=== PATIENT | female | born 1960 | race Caucasian/White ===

== ENCOUNTER 2016-10-27 00:04 | Emergency (ER) | payer MEDICARE, MEDICAID ==
[2016-10-27 00:14] VITALS: BP 124/69
[2016-10-27] MEDS ORDERED: FAMOTIDINE 20 MG TABLET PO ONE (02:36)
[2016-10-27] MEDS ORDERED: PREDNISONE 20 MG TABLET PO ONE (02:36)
--- NOTE | 2016-10-27 02:36 | ER Document Report ---
ED Allergic Reaction - General Mode of Arrival: Ambulatory Information source: Patient TRAVEL OUTSIDE OF THE [place] IN LAST 30 DAYS: No - HPI Onset: Just prior to arrival Severity: None Food exposure: Shellfish - General Chief Complaint: Allergic Reaction Stated Complaint: POSSIBLE ALLERGIC REACTION Notes: Patient is a 56-year-old female that presents to the emergency department today with complaints of an allergic reaction prior to arrival. Patient states she was eating artificial crab meat around 2315 this evening when she developed a diffuse rash with itching. Patient states she has not been allergic to any seafood in the past. Patient states she is not short of breath now and she did not notice any wheezing. at bedside states the patient had a diffuse rash. Patient states the rash was itchy but she denies any other symptoms. ( HOANG KUMAR) - Related Data Allergies/Adverse Reactions: acetaminophen [From Percocet] Allergy (Intermediate, Verified 04/27/16 10:00) Hallucinations adhesive [Adhesive] Allergy (Intermediate, Verified 04/27/16 10:00) rash celecoxib [From Celebrex] Allergy (Intermediate, Verified 04/27/16 10:00) vomiting and hives nitrofurantoin [From Macrobid] Allergy (Intermediate, Verified 04/27/16 10:00) rash nitrofurantoin macrocrystalline [From Macrobid] Allergy (Intermediate, Verified 04/27/16 10:00) Generalized rash buprenorphine Adverse Reaction (Intermediate, Verified 04/27/16 10:00) Anaphylaxis oxycodone HCl [From Percocet] Adverse Reaction (Intermediate, Verified 04/27/16 10:00) hallucinate Past Medical History - General Information source: Patient - Social History Smoking Status: Current Every Day Smoker Cigarette use (# per day): Yes Frequency of alcohol use: None Drug Abuse: None Lives with: Family Family History: Reviewed & Not Pertinent GI Medical History: Reports: Hx Gastroesophageal Reflux Disease Musculoskeltal Medical History: Reports Hx Arthritis, Reports Hx Fibromyalgia Psychiatric Medical History: Reports: Hx Anxiety, Hx Depression Past Surgical History: Reports: Hx Orthopedic Surgery - neck fusion, right shoulder, L arm. Denies: Hx Hysterectomy - Immunizations Hx Diphtheria, Pertussis, Tetanus Vaccination: No Review of Systems - Review of Systems Constitutional: See HPI, Other - allergic reaction EENT: No symptoms reported Cardiovascular: No symptoms reported Respiratory: denies: Short of breath, Wheezing Gastrointestinal: No symptoms reported Genitourinary: No symptoms reported Female Genitourinary: No symptoms reported Musculoskeletal: No symptoms reported Skin: See HPI, Rash Hematologic/Lymphatic: No symptoms reported Neurological/Psychological: No symptoms reported -: Yes All other systems reviewed and negative Physical Exam - General General appearance: Appears well, Alert In distress: None - HEENT Head: Normocephalic, Atraumatic Eyes: Normal Conjunctiva: Normal Extraocular movements intact: Yes Pharynx: Normal, Other - oropharynx is clear - Respiratory Respiratory status: No respiratory distress Chest status: Nontender Breath sounds: Normal - Cardiovascular Rhythm: Regular Heart sounds: Normal auscultation Murmur: No - Abdominal Inspection: Normal Distension: No distension - Extremities General upper extremity: Normal inspection, Normal ROM. No: Edema General lower extremity: Normal inspection, Normal ROM. No: Edema - Neurological Neuro grossly intact: Yes Cognition: Normal Orientation: AAOx4 Speech: Normal - Psychological Associated symptoms: Normal affect, Normal mood - Skin Skin Temperature: Warm Skin Moisture: Dry Skin Color: Normal Course - Re-evaluation Re-evalutation: 10/27/16 02:54 Patient presents stating that she had an allergic reaction to something that she thinks she ate around 11:30 tonight. She says she broke out in a rash all over and was very itchy. She reports that she tried alcohol swabs to reduce the itch. She called the rescue squad and they gave her some Benadryl and the itching has improved. She says the rash is gone now. She denies any history of allergic reactions. On exam, patient alert and oriented no acute distress vital signs are stable patient is afebrile nontoxic appearing. No signs of respiratory distress. Chest is clear and equal. No evidence of rash at this time. We will start patient on a short course of steroids and have her follow- up with her PCP. (KAVIN NOLASCO) - Vital Signs Vital signs: Temp Pulse Resp BP Pulse Ox 98.0 F 85 18 124/69 99 10/27/16 00:09 10/27/16 00:09 10/27/16 00:09 10/27/16 00:09 10/27/16 00:09 Discharge - Discharge Clinical Impression: Rash Allergic reaction Qualifiers: Encounter type: initial encounter Qualified Code(s): T78.40XA - Allergy, unspecified, initial encounter Condition: Stable Disposition: HOME, SELF-CARE Instructions: Acute Allergic Reaction ([facility]) Additional Instructions: Drink plenty fluids to stay well hydrated. Take the prednisone for the next couple of days to help reduce any residual allergic reaction - first dose with lunch today. You can continue to use Benadryl as needed for any itching. Follow- up the primary provider. Return for difficulty breathing, chest pain or other worsening or concerning symptoms. Prescriptions: Methylprednisolone [Medrol Dosepack (4 mg/Tab) 21 Tab/Dosepak] 21 tab PO ASDIR PRN #1 dspk PRN Reason: Scribe Attestation: 10/27/16 02:58 I personally performed the services described in the documentation, reviewed and edited the documentation which was dictated to the scribe in my presence, and it accurately records my words and actions. (KAVIN NOLASCO) Scribe Documentation - Scribe Written by Chaya:: Chaya Bee, 10/27/2016 0248 acting as scribe for :: Andrade
== END 2016-10-27 03:10 | disposition home or self-care (01) ==
LOC: ER 00:04
DX: T78.40XA Allergy, unspecified, initial encounter (principal); R21 Rash and other nonspecific skin eruption; X58.XXXA Exposure to other specified factors, initial encounter; F17.210 Nicotine dependence, cigarettes, uncomplicated; Z88.5 Allergy status to narcotic agent; Z91.048 Other nonmedicinal substance allergy status; Z88.1 Allergy status to other antibiotic agents
CPT/HCPCS: 99283; A9270 ×2; J7512

== ENCOUNTER → 2016-11-01 | Outpatient (CLI) | payer MEDICARE, MEDICAID | LOC: WI 15:00 | PROVIDERS: ATTEND Family Medicine | DX: Z12.31 Encounter for screening mammogram for malignant neoplasm of breast (principal) | CPT/HCPCS: 77067; G0202 ==

== ENCOUNTER 2017-05-31 14:23 | Emergency (ER) | payer MEDICARE, MEDICAID ==
[2017-05-31 14:34] VITALS: BP 122/64
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
--- NOTE | 2017-05-31 16:53 | RADIOLOGY REPORT (SQ) ---
EXAM DESCRIPTION: SHOULDER RIGHT 2 OR MORE VIEWS COMPLETED DATE/TIME: 05/31/2017 4:23 pm REASON FOR STUDY: injury COMPARISON: Chest x-ray dated 01/22/2016 NUMBER OF VIEWS: Three views. TECHNIQUE: Internal rotation, external rotation, and Y view images acquired of the right shoulder. LIMITATIONS: None. FINDINGS: MINERALIZATION: Normal. BONES: No acute fracture or dislocation. No worrisome bone lesions. JOINTS: Widening of the AC joint which is chronic, likely related to previous surgery. VISUALIZED LUNGS AND RIBS: No pneumothorax. No rib fracture. SOFT TISSUES: No radiopaque foreign body. OTHER: No other significant finding. IMPRESSION: 1. No evidence of acute injury. 2. Chronic widening of the AC joint presumably related to previous surgery. TECHNICAL DOCUMENTATION: JOB ID: [id number] [employer] [place]- All Rights Reserved
--- NOTE | 2017-05-31 16:57 | RADIOLOGY REPORT (SQ) ---
EXAM DESCRIPTION: CERV SP 4 OR 5 VIEWS COMPLETED DATE/TIME: 05/31/2017 4:23 pm REASON FOR STUDY: pain COMPARISON: 05/05/2011 NUMBER OF VIEWS: Five views. TECHNIQUE: AP, lateral, obliques and odontoid radiographic images acquired of the cervical spine. LIMITATIONS: None. FINDINGS: MINERALIZATION: Normal. ALIGNMENT: Anatomic. VERTEBRAE: Vertebral bodies of normal height. DISCS: Status post anterior fusion at C5-6 and C6-7 with metallic disc fusion devices and anterior sc rew and plate device noted in good position. Remaining disc spaces are well maintained with small os teophytes at remaining levels. FORAMINA: Severe narrowing on the left at C6-7, chronic. LATERAL AND POSTERIOR ELEMENTS: Facets, lateral masses and spinous processes without significant find ings. HARDWARE: None in the spine. SOFT TISSUES: No masses or calcifications. Lung apices clear. OTHER: No other significant finding. IMPRESSION: Degenerative changes and postsurgical changes without evidence of acute fracture. TECHNICAL DOCUMENTATION: JOB ID: [id number] [employer]- All Rights Reserved
== END 2017-05-31 17:25 | disposition home or self-care (01) ==
LOC: ER 14:23
DX: S20.312A Abrasion of left front wall of thorax, initial encounter (principal); S16.1XXA Strain of muscle, fascia and tendon at neck level, initial encounter; S46.811A Strain of other muscles, fascia and tendons at shoulder and upper arm level, right arm, initial encounter; S46.911A Strain of unspecified muscle, fascia and tendon at shoulder and upper arm level, right arm, initial encounter; V47.5XXA Car driver injured in collision with fixed or stationary object in traffic accident, initial encounter; Z88.6 Allergy status to analgesic agent; Z98.1 Arthrodesis status
CPT/HCPCS: 72050; 99283

== ENCOUNTER → 2017-08-10 | Outpatient (CLI) | payer MEDICARE, MEDICAID ==
--- NOTE | 2017-08-10 12:35 | RADIOLOGY REPORT (SQ) ---
EXAM DESCRIPTION: BARIUM SWALLOW ESOPHAGUS COMPLETED DATE/TIME: 08/10/2017 8:39 am REASON FOR STUDY: R13.10 DYSPHAGIA, UNSPECIFIED R13.10 DYSPHAGIA, UNSPECIFIED COMPARISON: None. TECHNIQUE: Under fluoroscopic guidance, patient ingested effervescent granules followed by thick and thin barium. Fluoroscopic spot images and routine radiographic images acquired and stored on PACS. 12 MM BARIUM TABLET GIVEN: Yes No significant delay in passage. LIMITATIONS: None. FLUOROSCOPY TIME: FLUORO TIME: 1.8 minutes 8 series of digital images saved to PACS. FINDINGS: NEUROMUSCULAR COORDINATION OF SWALLOW: Normal. No aspiration. ESOPHAGEAL MOTILITY: Normal peristalsis. No esophageal spasm. ESOPHAGEAL MUCOSA: Normal mucosa without masses or ulceration. GASTRO-ESOPHAGEAL JUNCTION: Moderate size retrocardiac hiatal hernia with unprovoked gastroesophageal reflux to the mid 3rd of the esophagus. No Schatzki's ring or distal esophageal stricture NON-GI TRACT STRUCTURES: Post lower cervical fusion OTHER: No other significant finding. IMPRESSION: Moderate size retrocardiac hiatal hernia with unprovoked gastroesophageal reflux to the mid 3rd of the esophagus. No Schatzki's ring or difficulty passing the 12 mm barium tablet COMMENT: Quality ID [id number]: Final reports for procedures using fluoroscopy that document radiation exp osure indices, or exposure time and number of fluorographic images (if radiation exposure indices are not available) TECHNICAL DOCUMENTATION: JOB ID: [id number] [employer]- All Rights Reserved
== END ==
LOC: RAD 08:07
PROVIDERS: ATTEND Internal Medicine Gastroenterology
DX: R13.10 Dysphagia, unspecified (principal); K21.9 Gastro-esophageal reflux disease without esophagitis; K44.9 Diaphragmatic hernia without obstruction or gangrene
CPT/HCPCS: 74220

== ENCOUNTER 2017-10-09 22:28 | Emergency (ER) | payer MEDICARE, MEDICAID ==
[2017-10-09] MEDS ORDERED: DIPHENHYDRAMINE HCL 50 MG/ML VIAL IV ONE (22:57)
[2017-10-09] MEDS ORDERED: LORAZEPAM INJ 2 MG/1 ML VIAL IV ONE (22:58)
[2017-10-09] MEDS ORDERED: HYDROMORPHONE HCL INJ/PF 2 MG/ML AMPULE IV ONE (22:58)
--- NOTE | 2017-10-09 23:06 | ER Document Report ---
ED General - General Chief Complaint: Headache Stated Complaint: HEADACHES Time Seen by Provider: 10/09/17 22:43 Mode of Arrival: Medic Information source: Patient TRAVEL OUTSIDE OF THE [place] IN LAST 30 DAYS: No - HPI Notes: Patient is a 57-year-old female history of reflux arthritis nerve pain depression anxiety PTSD presents with report of headache which came on this morning and is progressed since that time. The patient does have a history of some sinus trouble but denies any specific sinus pain. She reports minimal nausea but denies any vomiting. The patient states she has been weaning herself off of her hydrocodone as well as her BuSpar and has recently stopped Lyrica. The patient denies any chest pain or shortness of breath. The patient reports no fever or chills. The patient denies any neck stiffness. - Related Data Allergies/Adverse Reactions: acetaminophen [From Percocet] Allergy (Intermediate, Verified 05/31/17 14:31) Hallucinations adhesive [Adhesive] Allergy (Intermediate, Verified 05/31/17 14:31) rash celecoxib [From Celebrex] Allergy (Intermediate, Verified 05/31/17 14:31) vomiting and hives nitrofurantoin [From Macrobid] Allergy (Intermediate, Verified 05/31/17 14:31) rash nitrofurantoin macrocrystalline [From Macrobid] Allergy (Intermediate, Verified 05/31/17 14:31) Generalized rash buprenorphine Adverse Reaction (Intermediate, Verified 05/31/17 14:31) Anaphylaxis oxycodone HCl [From Percocet] Adverse Reaction (Intermediate, Verified 05/31/17 14:31) hallucinate Past Medical History - General Information source: Patient, Relative - Social History Smoking Status: Never Smoker Chew tobacco use (# tins/day): No Frequency of alcohol use: None Drug Abuse: None Lives with: Family Family History: Reviewed & Not Pertinent Patient has suicidal ideation: No Patient has homicidal ideation: No - Past Medical History Cardiac Medical History: Denies: Hx Coronary Artery Disease, Hx Heart Attack, Hx Hypertension Pulmonary Medical History: Denies: Hx Asthma, Hx Bronchitis, Hx COPD, Hx Pneumonia, Hx Tuberculosis Neurological Medical History: Denies: Hx Cerebrovascular Accident, Hx Migraine, Hx Seizures Renal/ Medical History: Denies: Hx Peritoneal Dialysis GI Medical History: Reports: Hx Gastroesophageal Reflux Disease Musculoskeltal Medical History: Reports Hx Arthritis, Reports Hx Fibromyalgia Psychiatric Medical History: Reports: Hx Anxiety, Hx Depression Past Surgical History: Reports: Hx Orthopedic Surgery - neck fusion, right shoulder, L arm. Denies: Hx Hysterectomy - Immunizations Hx Diphtheria, Pertussis, Tetanus Vaccination: No Review of Systems - Review of Systems Notes: REVIEW OF SYSTEMS: CONSTITUTIONAL : Denies fever, chills, or sweats. EENT: Denies eye, ear, throat, or mouth pain or symptoms. Denies nasal or sinus congestion or discharge. Denies throat, tongue, or mouth swelling or difficulty swallowing. CARDIOVASCULAR: Denies chest pain. Denies palpitations or racing or irregular heart beat. Denies ankle edema. RESPIRATORY: Denies cough, cold, or chest congestion. Denies shortness of breath, difficulty breathing, or wheezing. GASTROINTESTINAL: Denies abdominal pain or distention. Denies cold vomiting, or diarrhea. Denies blood in vomitus, stools, or per rectum. Denies black, tarry stools. Denies constipation. GENITOURINARY: Denies difficulty urinating, painful urination, burning, frequency, blood in urine, or discharge. FEMALE GENITOURINARY: Denies vaginal bleeding, heavy or abnormal periods, irregular periods. Denies vaginal discharge or odor. MUSCULOSKELETAL: Denies back or neck pain or stiffness. Denies joint pain or swelling. SKIN: Denies rash, lesions or sores. HEMATOLOGIC : Denies easy bruising or bleeding. LYMPHATIC: Denies swollen, enlarged glands. NEUROLOGICAL: Denies confusion or altered mental status. Denies passing out or loss of consciousness. Denies dizziness or lightheadedness. Denies weakness or paralysis or loss of use of either side. Denies problems with gait or speech. Denies sensory loss, numbness, or tingling. Denies seizures. PSYCHIATRIC: Denies depression, suicidal ideation, or homicidal ideation. Reports anxiety. ALL OTHER SYSTEMS REVIEWED AND NEGATIVE. Dictation was performed using [employer] voice recognition software is Physical Exam - Notes Notes: PHYSICAL EXAMINATION: GENERAL: Well-appearing, well-nourished and in no acute distress. HEAD: Atraumatic, normocephalic. No temporal arterial tenderness. No TMJ joint tenderness. Anterior chambers are normal. The patient localizes her pain more frontal region. No specific sinus tenderness. EYES: Pupils equal round and reactive to light, extraocular movements intact, conjunctiva are normal. ENT: Nares patent, oropharynx clear without exudates. Moist mucous membranes. NECK: Normal range of motion, supple without lymphadenopathy LUNGS: Breath sounds clear to auscultation bilaterally and equal. No wheezes rales or rhonchi. HEART: Regular rate and rhythm without murmurs ABDOMEN: Soft, nontender, nondistended abdomen. No guarding, no rebound. No masses appreciated. Female : deferred Musculoskeletal: Normal range of motion, no pitting or edema. No cyanosis. NEUROLOGICAL: Cranial nerves grossly intact. Normal speech, normal gait. Normal sensory, motor exams. No cerebellar ataxia. PSYCH: Normal mood, normal affect. SKIN: Warm, Dry, normal turgor, no rashes or lesions noted. Course - Re-evaluation Re-evalutation: 10/09/17 23:07 Patient was given IV Benadryl, Ativan, Dilaudid. 10/10/17 01:08 Headache was resolved after medications. The patient still reported mild nausea and was given Zofran. Patient was given Cipro for urinary tract infection and a urine culture was obtained. Repeat exam showed no pain over the maxillary sinus region, with the patient only reporting pain more frontal region. No clinical suggestion for significant sinusitis based upon exam. No evidence for acute intracranial injury or significant electrolyte imbalance or anemia. I question a withdrawal state with the patient cutting back on multiple medications including her Lyrica, BuSpar and pain medications as possibly precipitating her headache. - Laboratory Result Diagrams: 10/09/17 23:14 10/09/17 23:14 Laboratory results interpreted by me: 10/09/17 10/10/17 23:14 00:03 Chloride 110 H AST 13 L Ur Leukocyte Esterase MODERATE H Discharge - Discharge Clinical Impression: Urinary tract infection Qualifiers: Urinary tract infection type: acute cystitis Hematuria presence: without hematuria Qualified Code(s): N30.00 - Acute cystitis without hematuria Headache Qualifiers: Headache type: other headache syndrome Qualified Code(s): G44.89 - Other headache syndrome Condition: Stable Disposition: HOME, SELF-CARE Instructions: Urinary Tract Infection ([facility]), Headache ([facility]), Family Physicians / Practices Additional Instructions: Drink plenty of fluids. Wean back off of your medication slowly, as headaches can be caused by a medication withdrawal state. Avoid secondhand smoke at all times, as this can lead to headaches. If you develop sinus tenderness, then you may need to follow up with [facility]. Prescriptions: Ondansetron [Zofran Odt 4 mg Tablet] 1 tab PO Q8HP PRN #15 tab.rapdis PRN Reason: For Nausea/Vomiting Ciprofloxacin HCl [Cipro 250 mg Tablet] 1 tab PO BID #14 tab
[2017-10-09 23:36] LABS: ABSOLUTE EOSINOPHILS # (AUTO) 0.2 10^3/uL (0.0-0.6); ABSOLUTE LYMPHOCYTES (AUTO) 3.1 10^3/uL (0.5-4.7); ABSOLUTE MONOCYTES (AUTO) 0.6 10^3/uL (0.1-1.4); ABSOLUTE NEUT (AUTO) 3.2 10^3/uL (1.7-8.2); BASOPHILS % (AUTO) 0.6 % (0-2); EOSINOPHILS % (AUTO) 2.6 % (0-6); HEMATOCRIT 38.5 % (36.0-47.0); LYMPHOCYTES % (AUTO) 42.9 % (13-45); MEAN CORPUSCULAR HGB CONC 33.7 g/dL (32.0-36.0); MEAN CORPUSCULAR VOLUME 89 fl (80-97); MONOCYTES % (AUTO) 8.9 % (3-13); PLATELET COUNT 314 10^3/uL (150-450); RED BLOOD COUNT 4.33 10^6/uL (3.72-5.28); RED CELL DISTRIBUTION WIDTH 12.7 % (11.5-14.0); TOTAL CELLS COUNTED % (AUTO) 100 %; WHITE BLOOD COUNT 7.1 10^3/uL (4.0-10.5)
[2017-10-09 23:37] LABS: ALANINE AMINOTRANSFERASE 14 U/L (9-52); ALBUMIN 4.1 g/dL (3.5-5.0); ALKALINE PHOSPHATASE 51 U/L (38-126); ANION GAP 10 (5-19); ASPARTATE AMINO TRANSFERASE 13 U/L (14-36); BILIRUBIN,DIRECT 0.1 mg/dL (0.0-0.4); BILIRUBIN,TOTAL 0.2 mg/dL (0.2-1.3); BLOOD UREA NITROGEN 20 mg/dL (7-20); CALCIUM 9.5 mg/dL (8.4-10.2); CARBON DIOXIDE 24 mmol/L (22-30); CHLORIDE 110 mmol/L (98-107); GLUCOSE 101 mg/dL (75-110); POTASSIUM 4.8 mmol/L (3.6-5.0); SODIUM 144.1 mmol/L (137-145); TOTAL PROTEIN 6.3 g/dL (6.3-8.2)
--- NOTE | 2017-10-09 23:58 | RADIOLOGY REPORT (SQ) ---
EXAM DESCRIPTION: CT HEAD WITHOUT CLINICAL HISTORY: 57 years Female, headache COMPARISON: None. TECHNIQUE: No contrast. This exam was performed according to our departmental dose-optimization program, which includes automated exposure control, adjustment of the mA and/or kV according to patient size and/or use of iterative reconstruction technique. FINDINGS: No hemorrhage or infarct. No mass, mass effect, or midline shift. Occluded right maxillary air cell due to soft tissue density material with high density and calcific components increased compared with prior exam, August 20, 2014. Decrease 0.9 cm left maxillary retention cyst-mucocele. Brain and extra-axial structures appear otherwise intact. IMPRESSION: 1. Chronic right maxillary sinusitis with possible fungal superinfection and/or nonspecific calcification. 2. Else, no acute intracranial findings.
[2017-10-10 00:28] LABS: APPEARANCE,URINE SLIGHTLY-CLOUDY; BILIRUBIN,URINE NEGATIVE (NEGATIVE); COLOR,URINE YELLOW; GLUCOSE, URINE NEGATIVE (NEGATIVE); KETONES,URINE NEGATIVE (NEGATIVE); LEUKOCYTE ESTERASE,URINE MODERATE (NEGATIVE); NITRITE,URINE NEGATIVE (NEGATIVE); PROTEIN,URINE NEGATIVE (NEGATIVE); URINE SPECIFIC GRAVITY 1.018; UROBILINOGEN,URINE NEGATIVE mg/dL (<2.0)
[2017-10-10] MEDS ORDERED: CIPROFLOXACIN HCL 500 MG TABLET PO ONE (00:58)
[2017-10-10] MEDS ORDERED: FAMOTIDINE 20 MG TABLET PO ONE (00:59)
[2017-10-10] MEDS ORDERED: ONDANSETRON HCL INJ/PF 4 MG/2 ML SDV IV ONE (00:59)
[2017-10-10 01:49] VITALS: BP 107/70
== END 2017-10-10 01:49 | disposition home or self-care (01) ==
LOC: ER 22:28
DX: G44.89 Other headache syndrome (principal); N30.00 Acute cystitis without hematuria; R11.0 Nausea; M19.90 Unspecified osteoarthritis, unspecified site; F41.9 Anxiety disorder, unspecified; Z91.14 Patient's other noncompliance with medication regimen; Z79.891 Long term (current) use of opiate analgesic; Z79.899 Other long term (current) drug therapy; Z88.1 Allergy status to other antibiotic agents; Z91.048 Other nonmedicinal substance allergy status; Z88.8 Allergy status to other drugs, medicaments and biological substances; Z88.6 Allergy status to analgesic agent
CPT/HCPCS: 99284; 96374; 96375; 36415; 87086; 85025; 80053; 81001; 70450; A9270 ×2; J1200; J1170; J2060; J2405

== ENCOUNTER → 2017-10-16 | Outpatient (CLI) | payer MEDICARE, MEDICAID ==
--- NOTE | 2017-10-16 10:46 | RADIOLOGY REPORT (SQ) ---
EXAM DESCRIPTION: COOKIE SWALLOW COMPLETED DATE/TIME: 10/16/2017 9:07 am REASON FOR STUDY: DYSPHAGIA R13.10 DYSPHAGIA, UNSPECIFIED FOOD IN PHARYNX CAUSING OTHER INJURY, SEQ UELA T17.228S COMPARISON: Barium swallow 08/10/2017 TECHNIQUE: Videofluoroscopic swallowing examination was performed in conjunction with speech patholo gy. Videofluoroscopic imaging was obtained and reviewed and these are the findings: RADIATION DOSE: Total fluoroscopy time: 1 minutes 47 seconds 1 fluoroscopy image saved to PACS. LIMITATIONS: None FINDINGS: The patient was brought into the fluoro room and placed upright on a modified barium swall ow chair. The patient was then given multiple consistencies mixed with barium to swallow under live fluoroscopic video guidance. According to the Speech Pathologist there was no significant laryngeal penetration or tracheal aspiration. Normal oral and pharyngeal transit time was observed. No signif icant post swallow residual seen. Cervical hardware is identified at C5 through C7 and is intact. P bear see speech pathology report for further details and recommendations. IMPRESSION: NO EVIDENCE OF LARYNGEAL PENETRATION OR TRACHEAL ASPIRATION.PLEASE SEE SPEECH PATHOLOGIS T REPORT FOR OTHER FINDINGS AND RECOMMENDATIONS. COMMENT: Quality ID [id number]: Final reports for procedures using fluoroscopy that document radiation exp osure indices, or exposure time and number of fluorographic images (if radiation exposure indices are not available) TECHNICAL DOCUMENTATION: JOB ID: [id number] [employer]- All Rights Reserved Reading location - IP/workstation name: [email or web address]
--- NOTE | 2017-10-16 12:55 | ST Modified Barium Swallow ---
Recommendation - Recommendations Recommendations: Oral and pharyngeal swallow skills WNL. No further intervention indicated. Medical Diagnoses - Medical Diagnoses Medical Diagnosis Description & ICD-10 Code(s): R13.10 dysphagia Other Medical Diagnoses/Co-Morbidities: Per EMR: Arthritis, Depression, High Cholesterol, Metal implants, Reflux, Urinary Incontinence ST Modified Barium Swallow - General Date: 10/16/17 Referring Physician: Dr. Fidel Padilla Risks/Precautions: None - History History obtained from: Patient -: Medical - Patient seen in outpatient setting for chairside swallowing assessment prior to MBSS this day. At that time, the patient reported difficulty with swallowing for approximately 5 years following cervical spin surgery, states that swallowing has been the same since that time. Specifically notices difficulty with meats. Patient does have a history of reflux as well. Medications: Nexium, Diazepam, Duloxetine, Zolpidem tartrate, Cyclobenzaprine, Ondansetron, Buspirone, Vitatrum MVI, Vit DZ, Loratadine, Vesicare, Simvastatin , Ropinirole HCL, Gabapentin, Premarin Allergies: Microban, Percocet, surgical/adhesive tape, Celebrex - Functional Status Prior Functional Status: INDEPENDENT: feeding - independent - Subjective Patient/caregiver goal(s): r/o aspiration, r/o struct. abnormality Cognitive-Linguistic Function: WNL Speech Intelligibility: WNL Current Nutritional Means: PO Current PO diet: Regular Current symptoms: c/o Globus sensation Pain: Patient reports, 0/5 - Objective Assessment: Upright, Left Lateral - Food Trials Used Food trials used: Thin liquids, Pureed, Regular The patient: Was Able to Self Feed - Oral-Motor Skills Dentition: Full Laryngeal Function: Volitional Cough - WNL, Volitional Swallow - WNL - Assessment Oral prep: Normal Labial closure: Adequate Leakage: None Mastication: Adequate Lingual Movement: Normal Oral stage: Normal for this Procedure - Pharyngeal Stage Initiation of Pharyngeal Stage Reflex: Normal Decreased laryngeal elevation: No Reduced Velopharyngeal Closure: no Reduced pressure generation: No reduced tongue-based retraction: No Pre-swallow pooling in valleculae: None Pre-Swallow pooling in pyriforms: None Reduced Thyro-Hyoid approximation: No Reduced epiglottic excursion: No Reduced pharyngeal peristalsis/contraction: No Post-swallow residulas vallecular: None Post-Swallow residuals in pyriforms: Mild - with pudding trials only Reduced Cricopharyngeal opening: No - Fall Risk Assessment Medications/Conditions that increase fall risks include: Antidepressants, sedatives, anti-arrhythmic, diuretic, benzodiazipenes, neuroleptics. BP regulation problems, cardiac problems, balance or gait deficits, neurological problems. Is patient considered at risk for falls: yes Fall Risk Actions Taken: No action needed - Behavioral Observations During evaluation process patient: was pleasant, was cooperative, able to answer questions - Treatment / Educational Needs: Treatment/Education Needs: Treatment consisted of patient education on the role of the Speech Pathologist. Patient's plan of care and golas were communicated as well as scheduling and attendance policies. Recommendations for initial home program were shared. Patient demonstrated understanding and verbalized agreement. - Impression/Summary Laryngeal Penetration: Yes, Flash, during swallow - with thin liquid 1/4 trials Tracheal Aspiration: no Patient presents with: Normal swallow at eval Risk of Aspiration: Minimal Evaluation and Findings: Oral and pharyngeal swallowing WNL for all textures. Mild penetration of thin liquids seen, and mild residue in pyriform sinus with solids, not enough to significantly impact the swallow. - Plan of Care Strategies to optimize patient understanding include:: ongoing assessment of educational needs, implementation of educational strategies, and re-education. - - -: Thank you for the opportunity to work with this patient and his/her family. Should you have any questions about this patient's plan or progress, I can be reached at [phone]. Charge G Code? - - -: Yes ST F.L. Impairment Category - Rationale Based On Rationale Based On: Func. Asshan. Tool Results - Swallowing Current G8996: CH 0% Impaired Goal G8997: CH 0% Impaired Discharge G8998: CH 0% Impaired
== END ==
LOC: RAD 08:43
PROVIDERS: ATTEND Internal Medicine Gastroenterology
DX: R13.12 Dysphagia, oropharyngeal phase (principal)
CPT/HCPCS: 74230; 92611; G8996; G8997; G8998

== ENCOUNTER → 2017-11-02 | Outpatient (CLI) | payer MEDICARE, MEDICAID ==
--- NOTE | 2017-11-04 17:03 | WOMENS IMAGING REPORT ---
EXAM DESCRIPTION: 3D SCREENING MAMMO BILAT COMPLETED DATE/TIME: 11/02/2017 12:16 pm REASON FOR STUDY: ROUTINE SCREENING; Z12.31 Z12.31 ENCNTR SCREEN MAMMOGRAM FOR MALIGNANT NEOPLASM O F RILEY COMPARISON: Multiple since 2010 TECHNIQUE: Standard craniocaudal and mediolateral oblique views of each breast recorded using digita l acquisition and breast tomosynthesis. LIMITATIONS: None. FINDINGS: No masses, calcifications or architectural distortion. No areas of suspicion. Read with the assistance of CAD. .[facility] R2 C[employer]ova Version 1.3 .[facility] - R2 Cenova Version 1.3 .[facility] - R2 Cenova Version 2.4 .[facility] - R2 Cenova Version 2.4 .[facility] - R2 Director Of Product Design Version 9.2 IMPRESSION: NORMAL MAMMOGRAM. BIRADS 1. BREAST DENSITY: c. The breasts are heterogeneously dense, which may obscure small masses. BIRAD: 1 NEGATIVE RECOMMENDATION: ROUTINE SCREENING Please continue yearly bilateral screening tomosynthesis in October 2018 COMMENT: The patient has been notified of the results by letter per SA requirements. Additional no tification policies are in place for contacting patient with suspicious or incomplete findings. Quality ID #[id number]: The [employer] recommends an annual screening mammogram for women aged 40 years or over. This facility utilizes a reminder system to ensure that all patients receive reminder letters, and/or direct phone calls for appointments. This includes reminders for routine scr eening mammograms, diagnostic mammograms, or other Breast Imaging Interventions when appropriate. Th is patient will be placed in the appropriate reminder system. The [employer] (ACR) has developed recommendations for screening MRI of the breast s in certain patient populations, to be used in conjunction with mammography. Breast MRI surveillanc e may be appropriate for women with more than 20% lifetime risk of developing breast cancer as deter mined by genetic testing, significant family history of the disease, or history of mantle radiation f or Hodgkins Disease. ACR Practice Guidelines 2008. DBT Technology DBT is a type of tomographic mammography. With conventional mammography, overlapping breast tissue ma y make lesions difficult to detect, even with good compression. DBT uses an x-ray tube that rotates a round the breast, taking images at different angles. These images are then combined to create thin sl ices of the breast that the radiologist can view as a 3D reconstruction. The [employer] unit can perform full-field digital mammograms (2D imaging); or DBT (3D imaging); or both, in a combination mode that quickly performs both the mammogram and the tomosynthesis scan while the breast is still compressed. PQRS 6045F: Fluoroscopic imaging is not utilized for breast tomosynthesis. TECHNICAL DOCUMENTATION: FINDING NUMBER: (1) ASSESSMENT: (1) JOB ID: [id number] [employer]- All Rights Reserved Reading location - IP/workstation name: [email or web address]
== END ==
LOC: WI 12:05
PROVIDERS: ATTEND Family Medicine
DX: Z12.31 Encounter for screening mammogram for malignant neoplasm of breast (principal)
CPT/HCPCS: 77063; 77067

== ENCOUNTER 2018-01-25 22:39 | Emergency (ER) | payer MEDICARE, MEDICAID ==
--- NOTE | 2018-01-26 01:48 | RADIOLOGY REPORT (SQ) ---
EXAM DESCRIPTION: CLINICAL HISTORY: 57 years Female ,abdominal pain , chronic narcotic use with constipation for two weeks COMPARISON: None. TECHNIQUE: Single view of the abdomen FINDINGS: No obvious free intraperitoneal air is noted. Psoas margins appear well-defined. There is a moderate amount of fecal material in the colon. No evidence to suggest small bowel obstruction. No abnormal calcifications are noted. IMPRESSION: Moderate amount of fecal material in the colon which could reflect constipation.
[2018-01-26] MEDS ORDERED: MINERAL OIL 30 ML UDCUP ONE (03:10)
[2018-01-26] MEDS ORDERED: MINERAL OIL 30 ML UDCUP PO ONE (03:36)
--- NOTE | 2018-01-26 04:48 | ER Document Report ---
ED General - General Chief Complaint: Abdominal Pain Stated Complaint: ABDOMINAL PAIN Time Seen by Provider: 01/26/18 01:02 Notes: Patient is a 57-year-old female with a history of chronic opiate use Zentz with chronic constipation. Says been worse over last week. She says she did have a small hard bowel movement yesterday but that is all. Said that she feels as if the lower portion of her abdomen is swollen. She has some nausea and did vomit once. She did see a GI doctor yesterday and was placed in amities up. She says since taking entities that she has had for cramping her abdomen and some vomiting. No fevers. No diarrhea. No blood in her stool. No other complaints at this time. TRAVEL OUTSIDE OF THE [place] IN LAST 30 DAYS: No - Related Data Allergies/Adverse Reactions: acetaminophen [From Percocet] Allergy (Intermediate, Verified 05/31/17 14:31) Hallucinations adhesive [Adhesive] Allergy (Intermediate, Verified 05/31/17 14:31) rash celecoxib [From Celebrex] Allergy (Intermediate, Verified 05/31/17 14:31) vomiting and hives nitrofurantoin [From Macrobid] Allergy (Intermediate, Verified 05/31/17 14:31) rash nitrofurantoin macrocrystalline [From Macrobid] Allergy (Intermediate, Verified 05/31/17 14:31) Generalized rash buprenorphine Adverse Reaction (Intermediate, Verified 05/31/17 14:31) Anaphylaxis oxycodone HCl [From Percocet] Adverse Reaction (Intermediate, Verified 05/31/17 14:31) hallucinate Past Medical History - Social History Smoking Status: Unknown if Ever Smoked Frequency of alcohol use: None Drug Abuse: None Family History: Reviewed & Not Pertinent Patient has suicidal ideation: No Patient has homicidal ideation: No - Past Medical History Cardiac Medical History: Denies: Hx Coronary Artery Disease, Hx Heart Attack, Hx Hypertension Pulmonary Medical History: Denies: Hx Asthma, Hx Bronchitis, Hx COPD, Hx Pneumonia, Hx Tuberculosis Neurological Medical History: Denies: Hx Cerebrovascular Accident, Hx Migraine, Hx Seizures Renal/ Medical History: Denies: Hx Peritoneal Dialysis GI Medical History: Reports: Hx Gastroesophageal Reflux Disease Musculoskeltal Medical History: Reports Hx Arthritis, Reports Hx Fibromyalgia Psychiatric Medical History: Reports: Hx Anxiety, Hx Depression Past Surgical History: Reports: Hx Orthopedic Surgery - neck fusion, right shoulder, L arm. Denies: Hx Hysterectomy - Immunizations Hx Diphtheria, Pertussis, Tetanus Vaccination: No Review of Systems - Review of Systems Notes: My Normal Review Basic REVIEW OF SYSTEMS: CONSTITUTIONAL : Denies fever, chills, or sweats. Denies recent illness. EENT: Denies eye, ear, throat, or mouth pain or symptoms. Denies nasal or sinus congestion. CARDIOVASCULAR: Denies chest pain. RESPIRATORY: Denies cough, cold, or chest congestion. Denies shortness of breath, difficulty breathing, or wheezing. GASTROINTESTINAL: No cramping. Vomiting 1. Complains of constipation GENITOURINARY: Denies difficulty urinating, painful urination, burning, frequency, or blood in urine. SKIN: Denies rash or skin lesions. NEUROLOGICAL: Denies altered mental status or loss of consciousness. Denies headache. Denies weakness or paralysis or loss of use of either side. Denies problems with gait or speech. Denies sensory or motor loss. ALL OTHER SYSTEMS REVIEWED AND NEGATIVE. Physical Exam - Vital signs Vitals: Temp Pulse Resp BP Pulse Ox 98.3 F 86 22 H 142/75 H 98 01/25/18 23:37 01/25/18 23:37 01/25/18 23:37 01/25/18 23:37 01/25/18 23:37 - Notes Notes: General Appearance: Well nourished, alert, cooperative, no acute distress, alert obvious discomfort. Vitals: reviewed, See vital signs table. Head: no swelling or tenderness to the head Eyes: PERRL, EOMI, Conjuctiva clear Mouth: No decreasd moisture Throat: No tonsillar inflammation, No airway obstruction, No lymphadenopathy Neck: Supple, no neck tenderness, No thyromegaly Lungs: No wheezing, No rales, No rhonci, No accessory muscle use, good air exchange bilaterally. Heart: Normal rate, Regular rythm, No murmur, no rub Abdomen: Normal BS, soft, No rigidity, mild lower abdominal tenderness palpation., No guarding, no rebound, no abdominal masses, no organomegaly Extremities: strength 5/5 in all extremities, good pulses in all extremities, no swelling or tenderness in the extremities, no edema. Skin: warm, dry, appropriate color, no rash Neuro: speech clear, oriented x 3, normal affect, responds appropriately to questions. Course - Re-evaluation Re-evalutation: 01/26/18 07:56 After the enemas patient did have several bowel movements she is feeling improved. She says she still has mild cramping in her abdomen but this is significantly improved from when she first came in. She will have her stop taking the Amitiza she said it made her feel sick. I will start her on lactulose. Encourage her to do [id number] Metamucil on a regular basis to help with fiber supplementation. Encouraged her return to ER if she has fevers, recurrent abdominal pain, vomiting, or she feels unwell. Patient agrees with plan will be discharged home. Dictation of this chart was performed using voice recognition software; therefore, there may be some unintended grammatical errors. - Vital Signs Vital signs: Temp Pulse Resp BP Pulse Ox 98.7 F 70 16 130/63 H 100 01/26/18 04:58 01/26/18 04:58 01/26/18 04:58 01/26/18 04:58 01/26/18 04:58 Discharge - Discharge Clinical Impression: Narcotic bowel syndrome Abdominal pain Qualifiers: Abdominal location: upper abdomen, unspecified Qualified Code(s): R10.10 - Upper abdominal pain, unspecified Condition: Good Disposition: HOME, SELF-CARE Additional Instructions: Please hold the miralax and Amitiza. please try the Lactulose that I have prescribed. please return to the ER immediately if you have fevers, recurrent vomiting, worsening abdominal pain, blood in your stool, or if you feel unwell. Prescriptions: Lactulose 10 gm PO BID 5 Days ml Referrals: LUIS E ANTONIO MD [Primary Care Provider] - 01/28/18
[2018-01-26 04:59] VITALS: BP 130/63
== END 2018-01-26 04:59 | disposition home or self-care (01) ==
LOC: ER 22:39
DX: K63.89 Other specified diseases of intestine (principal); R10.10 Upper abdominal pain, unspecified; K59.09 Other constipation; R11.2 Nausea with vomiting, unspecified; Z79.891 Long term (current) use of opiate analgesic
CPT/HCPCS: 99284; 74018; J3490

== ENCOUNTER 2018-02-21 19:02 | Emergency (ER) | payer MEDICARE, MEDICAID ==
--- NOTE | 2018-02-21 20:30 | ER Document Report ---
ED Medical Screen (RME) - General Chief Complaint: Back Pain Stated Complaint: BACK ACHE Time Seen by Provider: 02/21/18 20:14 Mode of Arrival: Ambulatory Information source: Patient Notes: 57-year-old female presents the emergency department complains of constipation. Patient has a history of chronic back pain and is in pain management. She is on narcotic pain medication. Patient states that she was told that her constipation is secondary to the narcotic usage. Patient states that she has been intermittently constipated for the last 3 months. Her last bowel movement was yesterday. Patient has had no bowel movements today. Patient describes her abdominal pain is a diffuse cramping sensation. No radiation of the pain. No alleviating or exacerbating factors. Patient has had associated nausea and vomiting. Patient states that she had a colonoscopy done 1 week ago and was told it was normal. She is being referred to another marble rubber for further testing to look for possible blockage. I have greeted and performed a rapid initial assessment of this patient. A comprehensive ED assessment and evaluation of the patient, analysis of test results and completion of the medical decision making process will be conducted by additional ED providers. PHYSICAL EXAMINATION: GENERAL: Well-appearing, well-nourished and in no acute distress. HEAD: Atraumatic, normocephalic. EYES: Pupils equal round extraocular movements intact, conjunctiva are normal. ENT: Nares patent NECK: Normal range of motion LUNGS: No respiratory distress Musculoskeletal: Normal range of motion NEUROLOGICAL: Normal speech, normal gait. PSYCH: Normal mood, normal affect. SKIN: Warm, Dry, normal turgor, no rashes or lesions noted. TRAVEL OUTSIDE OF THE [place] IN LAST 30 DAYS: No - Related Data Allergies/Adverse Reactions: acetaminophen [From Percocet] Allergy (Intermediate, Verified 05/31/17 14:31) Hallucinations adhesive [Adhesive] Allergy (Intermediate, Verified 05/31/17 14:31) rash celecoxib [From Celebrex] Allergy (Intermediate, Verified 05/31/17 14:31) vomiting and hives nitrofurantoin [From Macrobid] Allergy (Intermediate, Verified 05/31/17 14:31) rash nitrofurantoin macrocrystalline [From Macrobid] Allergy (Intermediate, Verified 05/31/17 14:31) Generalized rash buprenorphine Adverse Reaction (Intermediate, Verified 05/31/17 14:31) Anaphylaxis oxycodone HCl [From Percocet] Adverse Reaction (Intermediate, Verified 05/31/17 14:31) hallucinate Past Medical History - Social History Chew tobacco use (# tins/day): No Frequency of alcohol use: None Drug Abuse: None - Past Medical History Cardiac Medical History: Denies: Hx Coronary Artery Disease, Hx Heart Attack, Hx Hypertension Pulmonary Medical History: Denies: Hx Asthma, Hx Bronchitis, Hx COPD, Hx Pneumonia, Hx Tuberculosis Neurological Medical History: Denies: Hx Cerebrovascular Accident, Hx Migraine, Hx Seizures Renal/ Medical History: Denies: Hx Peritoneal Dialysis GI Medical History: Reports: Hx Gastroesophageal Reflux Disease Musculoskeltal Medical History: Reports Hx Arthritis, Reports Hx Fibromyalgia Psychiatric Medical History: Reports: Hx Anxiety, Hx Depression Past Surgical History: Reports: Hx Orthopedic Surgery - neck fusion, right shoulder, L arm. Denies: Hx Hysterectomy - Immunizations Hx Diphtheria, Pertussis, Tetanus Vaccination: No Physical Exam - Vital signs Vitals: Temp Pulse Resp BP Pulse Ox 97.5 F 74 16 139/81 H 98 02/21/18 19:17 02/21/18 19:17 02/21/18 19:17 02/21/18 19:17 02/21/18 19:17 Course - Vital Signs Vital signs: Temp Pulse Resp BP Pulse Ox 97.5 F 74 16 139/81 H 98 02/21/18 19:17 02/21/18 19:17 02/21/18 19:17 02/21/18 19:17 02/21/18 19:17 Doctor's Discharge - Discharge Referrals: LUIS E ANTONIO MD [Primary Care Provider] - Follow up as needed
[2018-02-21 20:52] LABS: ABSOLUTE BASOPHILS # (AUTO) 0.1 10^3/uL (0.0-0.2); ABSOLUTE EOSINOPHILS # (AUTO) 0.3 10^3/uL (0.0-0.6); ABSOLUTE LYMPHOCYTES (AUTO) 3.2 10^3/uL (0.5-4.7); ABSOLUTE MONOCYTES (AUTO) 0.5 10^3/uL (0.1-1.4); ABSOLUTE NEUT (AUTO) 2.9 10^3/uL (1.7-8.2); BASOPHILS % (AUTO) 0.9 % (0-2); EOSINOPHILS % (AUTO) 3.8 % (0-6); HEMATOCRIT 36.6 % (36.0-47.0); HEMOGLOBIN 12.5 g/dL (12.0-15.5); LYMPHOCYTES % (AUTO) 46.5 % (13-45); MEAN CORPUSCULAR HEMOGLOBIN 30.4 pg (27.0-33.4); MEAN CORPUSCULAR HGB CONC 34.1 g/dL (32.0-36.0); MEAN CORPUSCULAR VOLUME 89 fl (80-97); PLATELET COUNT 331 10^3/uL (150-450); RED CELL DISTRIBUTION WIDTH 13.1 % (11.5-14.0); SEGMENTED NEUTROPHILS % (AUTO) 41.8 % (42-78); TOTAL CELLS COUNTED % (AUTO) 100 %
[2018-02-21 20:57] LABS: APPEARANCE,URINE CLEAR; BILIRUBIN,URINE NEGATIVE (NEGATIVE); COLOR,URINE YELLOW; GLUCOSE, URINE NEGATIVE (NEGATIVE); KETONES,URINE NEGATIVE (NEGATIVE); LEUKOCYTE ESTERASE,URINE NEGATIVE (NEGATIVE); NITRITE,URINE NEGATIVE (NEGATIVE); PROTEIN,URINE NEGATIVE (NEGATIVE); URINE SPECIFIC GRAVITY 1.019; UROBILINOGEN,URINE NEGATIVE mg/dL (<2.0)
--- NOTE | 2018-02-21 21:08 | RADIOLOGY REPORT (SQ) ---
EXAM DESCRIPTION: ACUTE ABDOMEN SERIES COMPLETED DATE/TIME: 02/21/2018 8:53 pm REASON FOR STUDY: abdominal pain, constipation COMPARISON: None. NUMBER OF VIEWS: Three views. TECHNIQUE: Frontal chest, supine abdomen and upright/ abdomen radiographic images acquired. LIMITATIONS: None. FINDINGS: CHEST: Lungs clear of infiltrates. FREE AIR: None. No abnormal gas collections. BOWEL GAS PATTERN: Considerable stool is present. There is some dilated gas-filled bowel on the left . This may represent gas-filled loop of sigmoid. CALCIFICATIONS: No suspicious calcifications. HARDWARE: None in the abdomen. SOFT TISSUES: No gross mass or suggestion of organomegaly. BONES: No acute fracture. No worrisome bone lesions. OTHER: No other significant finding. IMPRESSION: Constipation. There appears to be a prominent gas-filled loop of sigmoid but the overal l appearance does not suggest bowel obstruction. TECHNICAL DOCUMENTATION: JOB ID: [id number] [employer]- All Rights Reserved Reading location - IP/workstation name: [email or web address]
[2018-02-21 21:19] LABS: ALANINE AMINOTRANSFERASE 19 U/L (9-52); ALBUMIN 4.2 g/dL (3.5-5.0); ALKALINE PHOSPHATASE 49 U/L (38-126); ANION GAP 11 (5-19); ASPARTATE AMINO TRANSFERASE 16 U/L (14-36); BILIRUBIN,DIRECT 0.2 mg/dL (0.0-0.4); BILIRUBIN,TOTAL 0.2 mg/dL (0.2-1.3); BLOOD UREA NITROGEN 11 mg/dL (7-20); CALCIUM 8.9 mg/dL (8.4-10.2); CARBON DIOXIDE 26 mmol/L (22-30); CHLORIDE 110 mmol/L (98-107); GLUCOSE 91 mg/dL (75-110); POTASSIUM 4.4 mmol/L (3.6-5.0); SODIUM 146.5 mmol/L (137-145); TOTAL PROTEIN 7.2 g/dL (6.3-8.2)
[2018-02-21] MEDS ORDERED: ONDANSETRON ODT 4 MG TAB (6 TAB/ER DISP) PO PRN (22:48)
[2018-02-21] MEDS ORDERED: PEG 3350/NA SULF,BICARB,CL/KCL 4000 ML ONE (22:55)
--- NOTE | 2018-02-21 23:03 | ER Document Report ---
ED General - General Chief Complaint: Back Pain Stated Complaint: BACK ACHE Time Seen by Provider: 02/21/18 20:14 Mode of Arrival: Ambulatory TRAVEL OUTSIDE OF THE [place] IN LAST 30 DAYS: No - HPI Patient complains to provider of: Constipation Notes: Patient coming in for concerns or constipation nausea vomiting. Patient is on chronic opioid therapy currently is taking Relistor states she also has been on the advantage. Patient states that she has had multiple bouts of constipation despite having her dose of her chronic opioid therapy. Patient states she is also tried MiraLAX with no relief. Patient states had a colonoscopy approximately week ago during a time she was given GoLYTELY tolerated this well. Patient does states having some slight nausea vomiting today start to come to ER for evaluation of possible obstruction. Patient otherwise resting company upon my evaluation patient does state she had a small bowel movement today normal bowel movement yesterday is currently still passing gas - Related Data Allergies/Adverse Reactions: acetaminophen [From Percocet] Allergy (Intermediate, Verified 05/31/17 14:31) Hallucinations adhesive [Adhesive] Allergy (Intermediate, Verified 05/31/17 14:31) rash celecoxib [From Celebrex] Allergy (Intermediate, Verified 05/31/17 14:31) vomiting and hives nitrofurantoin [From Macrobid] Allergy (Intermediate, Verified 05/31/17 14:31) rash nitrofurantoin macrocrystalline [From Macrobid] Allergy (Intermediate, Verified 05/31/17 14:31) Generalized rash buprenorphine Adverse Reaction (Intermediate, Verified 05/31/17 14:31) Anaphylaxis oxycodone HCl [From Percocet] Adverse Reaction (Intermediate, Verified 05/31/17 14:31) hallucinate Past Medical History - General Information source: Patient - Social History Smoking Status: Never Smoker Chew tobacco use (# tins/day): No Frequency of alcohol use: None Drug Abuse: None Family History: Reviewed & Not Pertinent Patient has suicidal ideation: No Patient has homicidal ideation: No - Past Medical History Cardiac Medical History: Denies: Hx Coronary Artery Disease, Hx Heart Attack, Hx Hypertension Pulmonary Medical History: Denies: Hx Asthma, Hx Bronchitis, Hx COPD, Hx Pneumonia, Hx Tuberculosis Neurological Medical History: Denies: Hx Cerebrovascular Accident, Hx Migraine, Hx Seizures Renal/ Medical History: Denies: Hx Peritoneal Dialysis GI Medical History: Reports: Hx Gastroesophageal Reflux Disease Musculoskeletal Medical History: Reports Hx Arthritis, Reports Hx Fibromyalgia Psychiatric Medical History: Reports: Hx Anxiety, Hx Depression Past Surgical History: Reports: Hx Orthopedic Surgery - neck fusion, right shoulder, L arm. Denies: Hx Hysterectomy - Immunizations Hx Diphtheria, Pertussis, Tetanus Vaccination: No Review of Systems - Review of Systems Constitutional: No symptoms reported EENT: No symptoms reported Cardiovascular: No symptoms reported Respiratory: No symptoms reported Gastrointestinal: Constipation Genitourinary: No symptoms reported Female Genitourinary: No symptoms reported Musculoskeletal: No symptoms reported Skin: No symptoms reported Hematologic/Lymphatic: No symptoms reported Neurological/Psychological: No symptoms reported -: Yes All other systems reviewed and negative Physical Exam - Vital signs Vitals: Temp Pulse Resp BP Pulse Ox 97.5 F 74 16 139/81 H 98 02/21/18 19:17 02/21/18 19:17 02/21/18 19:17 02/21/18 19:17 02/21/18 19:17 Interpretation: Normal - General General appearance: Appears well, Alert - HEENT Head: Normocephalic, Atraumatic Eyes: Normal Pupils: PERRL - Respiratory Respiratory status: No respiratory distress Chest status: Nontender Breath sounds: Normal Chest palpation: Normal - Cardiovascular Rhythm: Regular Heart sounds: Normal auscultation Murmur: No - Abdominal Inspection: Normal Distension: No distension Bowel sounds: Normal Tenderness: Nontender Organomegaly: No organomegaly - Rectal Notes: Rectal exam performed to rule out any signs of impaction this was negative during rectal exam patient does pass flatus - Back Back: Normal, Nontender - Extremities General upper extremity: Normal inspection, Nontender, Normal color, Normal ROM , Normal temperature General lower extremity: Normal inspection, Nontender, Normal color, Normal ROM , Normal temperature, Normal weight bearing. No: Francisco's sign - Neurological Neuro grossly intact: Yes Cognition: Normal Orientation: AAOx4 [place] Coma Scale Eye Opening: Spontaneous [place] Coma Scale Verbal: Oriented Cy Coma Scale Motor: Obeys Commands [place] Coma Scale Total: 15 Speech: Normal Motor strength normal: LUE, RUE, LLE, RLE Sensory: Normal - Psychological Associated symptoms: Normal affect, Normal mood - Skin Skin Temperature: Warm Skin Moisture: Dry Skin Color: Normal Course - Re-evaluation Re-evalutation: 02/22/18 00:20 X-ray shows constipation no signs of obstruction. Patient is passing gas at this time no signs of impaction. More likely constipation due to the patient's chronic opioid therapy. As patient has tolerated GoLYTELY in the past we will send patient home with nausea medication and Julián this was given to the patient here in ER. Patient is to drink 8 ounces or 30 minutes until she has a significant bowel movement. Patient will be discharged home - Vital Signs Vital signs: Temp Pulse Resp BP Pulse Ox 97.7 F 81 18 118/76 100 02/21/18 23:16 02/21/18 23:16 02/21/18 23:16 02/21/18 23:16 02/21/18 23:16 - Laboratory Result Diagrams: 02/21/18 20:33 02/21/18 20:33 Laboratory results interpreted by me: 02/21/18 02/21/18 02/21/18 20:33 20:33 20:35 Seg Neutrophils % 41.8 L Lymphocytes % 46.5 H Sodium 146.5 H Chloride 110 H Urine Ascorbic Acid 40 H Discharge - Discharge Clinical Impression: Constipation Qualifiers: Constipation type: unspecified constipation type Qualified Code(s): K59.00 - Constipation, unspecified Disposition: HOME, SELF-CARE Instructions: Constipation ([facility]) Additional Instructions: X-ray today shows significant signs of constipation no signs of obstruction. Your rectal examination not showing signs of stool impaction. Please drink the GoLYTELY given to you here in the ER would recommend 8 ounce glass every 15-30 minutes as tolerated continue until you have multiple stools. Use the Zofran for any nausea Return to ER symptoms worsen. Prescriptions: Ondansetron [Zofran Odt] 4 mg PO Q6 PRN #30 tab.rapdis PRN Reason: For Nausea/Vomiting Referrals: LUIS E ANTONIO MD [Primary Care Provider] - Follow up as needed
[2018-02-21 23:16] VITALS: BP 118/76
== END 2018-02-21 23:17 | disposition home or self-care (01) ==
LOC: ER 19:02
DX: K59.03 Drug induced constipation (principal); T40.2X5A Adverse effect of other opioids, initial encounter; Z79.891 Long term (current) use of opiate analgesic; M54.9 Dorsalgia, unspecified; Z88.6 Allergy status to analgesic agent; Z88.8 Allergy status to other drugs, medicaments and biological substances
CPT/HCPCS: 99283; 36415; 83690; 85025; 80053; 81001; 74022; J3490; A9270

== ENCOUNTER 2018-10-10 16:24 | Emergency (ER) | payer MEDICARE, MEDICAID ==
--- NOTE | 2018-10-10 16:49 | ER Document Report ---
ED Medical Screen (RME) - General Chief Complaint: Abdominal Pain Stated Complaint: ABDOMINAL PAIN Time Seen by Provider: 10/10/18 16:43 Primary Care Provider: LUIS E ANTONIO MD [Primary Care Provider] - Follow up as needed Notes: 58 years old female who is a difficult historian taking multiple medications presents today with lower abdominal pain when the pain comes on she complains of the whole body shaking and having difficulty in laying down or sitting. Unable to walk because of the and the pain hits she feels very wobbly. No fever chills or other constitutional symptoms TRAVEL OUTSIDE OF THE [place] IN LAST 30 DAYS: No - Related Data Allergies/Adverse Reactions: acetaminophen [From Percocet] Allergy (Intermediate, Verified 10/10/18 16:31) Hallucinations adhesive [Adhesive] Allergy (Intermediate, Verified 10/10/18 16:31) rash celecoxib [From Celebrex] Allergy (Intermediate, Verified 10/10/18 16:31) vomiting and hives nitrofurantoin [From Macrobid] Allergy (Intermediate, Verified 10/10/18 16:31) rash nitrofurantoin macrocrystalline [From Macrobid] Allergy (Intermediate, Verified 10/10/18 16:31) Generalized rash buprenorphine Adverse Reaction (Intermediate, Verified 10/10/18 16:31) Anaphylaxis oxycodone HCl [From Percocet] Adverse Reaction (Intermediate, Verified 10/10/18 16:31) hallucinate Past Medical History - Past Medical History Cardiac Medical History: Denies: Hx Coronary Artery Disease, Hx Heart Attack, Hx Hypertension Pulmonary Medical History: Denies: Hx Asthma, Hx Bronchitis, Hx COPD, Hx Pneumonia, Hx Tuberculosis Neurological Medical History: Denies: Hx Cerebrovascular Accident, Hx Migraine, Hx Seizures Renal/ Medical History: Denies: Hx Peritoneal Dialysis GI Medical History: Reports: Hx Gastroesophageal Reflux Disease Musculoskeltal Medical History: Reports Hx Arthritis, Reports Hx Fibromyalgia Psychiatric Medical History: Reports: Hx Anxiety, Hx Depression Past Surgical History: Reports: Hx Orthopedic Surgery - neck fusion, right shoulder, L arm. Denies: Hx Hysterectomy - Immunizations Hx Diphtheria, Pertussis, Tetanus Vaccination: No Physical Exam - Vital signs Vitals: Pulse Resp BP Pulse Ox 76 18 132/67 H 100 10/10/18 16:30 10/10/18 16:30 10/10/18 16:30 10/10/18 16:30 Course - Vital Signs Vital signs: Temp Pulse Resp BP Pulse Ox 76 18 132/67 H 100 10/10/18 16:30 10/10/18 16:30 10/10/18 16:30 10/10/18 16:30 Doctor's Discharge - Discharge Referrals: LUIS E ANTONIO MD [Primary Care Provider] - Follow up as needed
[2018-10-10 17:03] LABS: ABSOLUTE BASOPHILS # (AUTO) 0.1 10^3/uL (0.0-0.2); ABSOLUTE EOSINOPHILS # (AUTO) 0.1 10^3/uL (0.0-0.6); ABSOLUTE LYMPHOCYTES (AUTO) 2.5 10^3/uL (0.5-4.7); ABSOLUTE MONOCYTES (AUTO) 0.4 10^3/uL (0.1-1.4); ABSOLUTE NEUT (AUTO) 2.2 10^3/uL (1.7-8.2); BASOPHILS % (AUTO) 1.1 % (0-2); EOSINOPHILS % (AUTO) 2.5 % (0-6); HEMATOCRIT 37.4 % (36.0-47.0); HEMOGLOBIN 12.7 g/dL (12.0-15.5); LYMPHOCYTES % (AUTO) 46.9 % (13-45); MEAN CORPUSCULAR HEMOGLOBIN 30.3 pg (27.0-33.4); MEAN CORPUSCULAR HGB CONC 34.1 g/dL (32.0-36.0); MEAN CORPUSCULAR VOLUME 89 fl (80-97); MONOCYTES % (AUTO) 8.3 % (3-13); PLATELET COUNT 304 10^3/uL (150-450); RED CELL DISTRIBUTION WIDTH 13.2 % (11.5-14.0); SEGMENTED NEUTROPHILS % (AUTO) 41.2 % (42-78); TOTAL CELLS COUNTED % (AUTO) 100 %; WHITE BLOOD COUNT 5.4 10^3/uL (4.0-10.5)
--- NOTE | 2018-10-10 17:15 | RADIOLOGY REPORT (SQ) ---
EXAM DESCRIPTION: ACUTE ABDOMEN SERIES COMPLETED DATE/TIME: 10/10/2018 5:03 pm REASON FOR STUDY: Abdominal pain COMPARISON: None. NUMBER OF VIEWS: Three views. TECHNIQUE: Frontal chest, supine abdomen and upright/decubitus abdomen radiographic images acquired. LIMITATIONS: None. FINDINGS: CHEST: Lungs clear of infiltrates. FREE AIR: None. No abnormal gas collections. BOWEL GAS PATTERN: Abundant gas and fecal material throughout the colon. Mildly dilated loops of col on to left of midline. Gas overlying the rectosigmoid. CALCIFICATIONS: No suspicious calcifications. HARDWARE: None in the abdomen. SOFT TISSUES: No gross mass or suggestion of organomegaly. BONES: No acute fracture. No worrisome bone lesions. OTHER: No other significant finding. IMPRESSION: Fecal retention. Possible early colonic obstruction. TECHNICAL DOCUMENTATION: JOB ID: [id number] [employer]- All Rights Reserved Reading location - IP/workstation name: [email or web address]
[2018-10-10 17:21] LABS: ALANINE AMINOTRANSFERASE 10 U/L (9-52); ALBUMIN 4.2 g/dL (3.5-5.0); ALKALINE PHOSPHATASE 46 U/L (38-126); ANION GAP 8 (5-19); ASPARTATE AMINO TRANSFERASE 40 U/L (14-36); BILIRUBIN,DIRECT 0.3 mg/dL (0.0-0.4); BILIRUBIN,TOTAL 0.4 mg/dL (0.2-1.3); BLOOD UREA NITROGEN 9 mg/dL (7-20); CARBON DIOXIDE 25 mmol/L (22-30); CHLORIDE 109 mmol/L (98-107); GLUCOSE 74 mg/dL (75-110); LIPASE 25.9 U/L (23-300); POTASSIUM 4.2 mmol/L (3.6-5.0); TOTAL PROTEIN 6.9 g/dL (6.3-8.2)
[2018-10-10 18:00] LABS: APPEARANCE,URINE CLEAR; BILIRUBIN,URINE NEGATIVE (NEGATIVE); COLOR,URINE STRAW; GLUCOSE, URINE NEGATIVE (NEGATIVE); KETONES,URINE NEGATIVE (NEGATIVE); LEUKOCYTE ESTERASE,URINE TRACE (NEGATIVE); NITRITE,URINE NEGATIVE (NEGATIVE); PROTEIN,URINE NEGATIVE (NEGATIVE); URINE SPECIFIC GRAVITY 1.005; UROBILINOGEN,URINE NEGATIVE mg/dL (<2.0)
--- NOTE | 2018-10-10 22:42 | ER Document Report ---
ED General - General Chief Complaint: Abdominal Pain Stated Complaint: ABDOMINAL PAIN Time Seen by Provider: 10/10/18 16:43 Primary Care Provider: LUIS E ANTONIO MD [Primary Care Provider] - Follow up as needed TRAVEL OUTSIDE OF THE [place] IN LAST 30 DAYS: No - HPI Notes: Patient presents to the emergency department. She is a very poor historian. She relates to me that she has been "feeling funny." She states that this is not the first time this is happened. She is try to relate this problem to her primary care physician, but she has never been seen when it is happening. She states she just "cannot sit down." She has associated abdominal pain with this as well. Is in the lower abdomen. She states she did have a bowel movement earlier today. She is passing gas. She states she had nausea with one episode of emesis last night. Of note this abdominal pain is not new either. She states she been having this in her mid leg for over a year. No urinary symptom s, no vaginal discharge. - Related Data Allergies/Adverse Reactions: acetaminophen [From Percocet] Allergy (Intermediate, Verified 10/10/18 16:31) Hallucinations adhesive [Adhesive] Allergy (Intermediate, Verified 10/10/18 16:31) rash celecoxib [From Celebrex] Allergy (Intermediate, Verified 10/10/18 16:31) vomiting and hives nitrofurantoin [From Macrobid] Allergy (Intermediate, Verified 10/10/18 16:31) rash nitrofurantoin macrocrystalline [From Macrobid] Allergy (Intermediate, Verified 10/10/18 16:31) Generalized rash buprenorphine Adverse Reaction (Intermediate, Verified 10/10/18 16:31) Anaphylaxis oxycodone HCl [From Percocet] Adverse Reaction (Intermediate, Verified 10/10/18 16:31) hallucinate Past Medical History - General Information source: Patient - Social History Smoking Status: Never Smoker Frequency of alcohol use: None Drug Abuse: None Family History: Reviewed & Not Pertinent Patient has suicidal ideation: No Patient has homicidal ideation: No - Past Medical History Cardiac Medical History: Reports: Hx Hypercholesterolemia Denies: Hx Coronary Artery Disease, Hx Heart Attack, Hx Hypertension Pulmonary Medical History: Denies: Hx Asthma, Hx Bronchitis, Hx COPD, Hx Pneumonia, Hx Tuberculosis Neurological Medical History: Denies: Hx Cerebrovascular Accident, Hx Migraine, Hx Seizures Renal/ Medical History: Denies: Hx Peritoneal Dialysis GI Medical History: Reports: Hx Gastroesophageal Reflux Disease Musculoskeletal Medical History: Reports Hx Arthritis, Reports Hx Fibromyalgia Psychiatric Medical History: Reports: Hx Anxiety, Hx Depression Past Surgical History: Reports: Hx Orthopedic Surgery - neck fusion, right shoulder, L arm. Denies: Hx Hysterectomy - Immunizations Hx Diphtheria, Pertussis, Tetanus Vaccination: No Review of Systems - Review of Systems Constitutional: No symptoms reported EENT: No symptoms reported Cardiovascular: No symptoms reported Respiratory: No symptoms reported Gastrointestinal: See HPI Musculoskeletal: No symptoms reported Skin: No symptoms reported Neurological/Psychological: No symptoms reported Physical Exam - Vital signs Vitals: Pulse Resp BP Pulse Ox 76 18 132/67 H 100 10/10/18 16:30 10/10/18 16:30 10/10/18 16:30 10/10/18 16:30 Notes: Temperature 97.8 orally - Notes Notes: Vital signs reviewed, please refer to chart. Patient is normocephalic, atraumatic. Pupils equal round, reactive to light. Neck is supple without meningismus. Heart is regular rate and rhythm. Lungs are clear to auscultation bilaterally. Abdomen is soft, global mild tenderness without rebound or guard ing, normoactive bowel sounds throughout. Extremities without cyanosis, clubbing, edema. Peripheral pulses are equal. Skin is warm and dry. Patient is awake, alert, neurological exam is nonfocal. Course - Re-evaluation Re-evalutation: 10/10/18 22:40 Patient presents emergency department for evaluation. She was initially seen and examined by the doctor in triage. He did order abdominal series. He did showing increased stool but also possible early obstruction. Given this information, I did feel the need to order a CT scan. IV and oral contrast were administered. Laboratory evaluations are largely unremarkable. Repeat exam revealed no significant abdominal tenderness. 10/10/18 23:30 Repeat exam continues to be unremarkable. Patient is feeling improved. She is told to treat herself for constipation as she has in the past. Otherwise she is to follow with primary care, return to the ED with worsening or new concerning symptoms. - Vital Signs Vital signs: Temp Pulse Resp BP Pulse Ox 97.8 F 64 16 121/59 L 99 10/10/18 20:18 10/10/18 20:18 10/10/18 20:18 10/10/18 20:18 10/10/18 20:18 - Laboratory Result Diagrams: 10/10/18 16:00 10/10/18 16:00 Laboratory results interpreted by me: 10/10/18 10/10/18 10/10/18 16:00 16:00 17:30 Seg Neutrophils % 41.2 L Lymphocytes % 46.9 H Chloride 109 H Glucose 74 L AST 40 H Ur Leukocyte Esterase TRACE H Discharge - Discharge Clinical Impression: Abdominal pain Qualifiers: Abdominal location: lower abdomen, unspecified Qualified Code(s): R10.30 - Lower abdominal pain, unspecified Condition: Stable Instructions: Abdominal Pain ([facility]) Additional Instructions: Follow-up with your doctor next week. You should also discuss whether another colonoscopy would be indicated. Call your food writer for further evaluation as well concerning symptoms. Referrals: LUIS E ANTONIO MD [Primary Care Provider] - Follow up as needed
--- NOTE | 2018-10-10 23:05 | RADIOLOGY REPORT (SQ) ---
CT ABDOMEN PELVIS WITH IV CONTRAST HISTORY: Abdominal pain. COMPARISON: None. TECHNIQUE: CT scan of the abdomen and pelvis with IV contrast. This exam was performed according to our departmental dose-optimization program, which includes automated exposure control, adjustment of the mA and/or kV according to patient size and/or use of iterative reconstruction technique. FINDINGS: There is atelectasis at the lung bases. No pleural or pericardial effusions. There is a small hiatal hernia. The liver, gallbladder, spleen, pancreas, adrenal glands, and kidneys are unremarkable. No obstructing urinary stones or hydronephrosis. No small bowel obstruction. The appendix is not visualized. There are scattered colonic diverticula without surrounding inflammatory changes. No intraperitoneal free fluid or free air is seen. The aorta and IVC are normal. No acute osseous findings are seen. There is no body wall hernia. IMPRESSION: No acute abdominal or pelvic pathology.
[2018-10-10 23:47] VITALS: BP 130/79
== END 2018-10-10 23:47 | disposition home or self-care (01) ==
LOC: ER 16:24
DX: R10.30 Lower abdominal pain, unspecified (principal); E78.00 Pure hypercholesterolemia, unspecified; Z88.3 Allergy status to other anti-infective agents; Z88.6 Allergy status to analgesic agent; Z98.1 Arthrodesis status
CPT/HCPCS: 36415; 74022; 74177; 80053; 81001; 83690; 85025; 99284

== ENCOUNTER 2019-03-10 19:16 | Emergency (ER) | payer MEDICARE, MEDICAID ==
[2019-03-10] MEDS ORDERED: DIAZEPAM 5 MG TABLET PO ONE (21:28)
[2019-03-10] MEDS ORDERED: MECLIZINE HCL 25 MG TABLET PO ONE (21:28)
[2019-03-10 22:09] LABS: APPEARANCE,URINE SLIGHTLY-CLOUDY; BILIRUBIN,URINE NEGATIVE (NEGATIVE); COLOR,URINE YELLOW; GLUCOSE, URINE NEGATIVE (NEGATIVE); KETONES,URINE NEGATIVE (NEGATIVE); LEUKOCYTE ESTERASE,URINE SMALL (NEGATIVE); NITRITE,URINE NEGATIVE (NEGATIVE); PROTEIN,URINE NEGATIVE (NEGATIVE); URINE SPECIFIC GRAVITY 1.014
[2019-03-10] MEDS ORDERED: CEPHALEXIN 500 MG CAPSULE PO ONE (22:27)
--- NOTE | 2019-03-10 22:32 | ER Document Report ---
ED Dizziness/Weakness - General Chief Complaint: Dizziness Stated Complaint: DIZZINESS Time Seen by Provider: 03/10/19 21:09 Primary Care Provider: LUIS E ANTONIO MD [Primary Care Provider] - Follow up as needed TRAVEL OUTSIDE OF THE [place] IN LAST 30 DAYS: No - HPI Notes: Patient is a 58-year-old female that presents to the emergency department for chief complaint of dizziness and bladder spasms. Patient states that she was having a dream last night that she was falling and when she woke up she felt like she was still falling. This occurred at about 4 AM. Patient was back to sleep when she woke up later around 8 or 9 she states that she started to feel a spinning sensation. She has no symptoms while lying at rest but anytime she sits up or moves her head she begins to feel like the room is spinning. She states she is able to walk but feels like she might fall because of the spinning. When she sits still the sensation resolves after a few seconds. She denies any vomiting but does state it makes her nauseous when the room is spinning. She denies history of vertigo in the past but reports chronic sinus issues and right ear fullness for the last 2 years. She denies recent upper respiratory illness. She denies associated vision changes, headache, numbness and weakness. Patient also states for the last 2 to 3 days she has had urinary urgency and bladder spasming. She denies any fevers or chills. Past Medical History: Hyperlipidemia, GERD, fibromyalgia, anxiety, depression Past Surgical History: Cervical fusion Social History: Denies drugs alcohol and tobacco Family History: Reviewed and noncontributory for presenting illness Allergies: Reviewed, see documented allergy list. REVIEW OF SYSTEMS: CONSTITUTIONAL : No fever No chills No diaphoresis No recent illness EENT: No vision changes No congestion No sore throat CARDIOVASCULAR: No chest pain No palpitations RESPIRATORY: No shortness of breath No cough No difficulty breathing GASTROINTESTINAL: No abdominal pain nausea No vomiting No diarrhea GENITOURINARY: No dysuria Urgency No hematuria No difficulty urinating MUSCULOSKELETAL: No back pain No leg pain No arm pain SKIN: No rashes No lesions LYMPHATIC: No swollen, enlarged glands. NEUROLOGICAL: No lightheadedness No headache No weakness No paresthesias Dizziness PSYCHIATRIC: No anxiety No depression PHYSICAL EXAMINATION: Vital signs reviewed, nursing noted reviewed. GENERAL: Well-appearing, well-nourished and in no acute distress. HEAD: Atraumatic, normocephalic. EYES: Fatigable horizontal nystagmus bilaterally, eyes appear normal, extraocular movements intact, sclera anicteric, conjunctiva are normal. ENT: Right middle ear effusion, normal TMs bilaterally, nares patent, oropharynx clear without exudates. Moist mucous membranes. NECK: Normal range of motion, supple without lymphadenopathy LUNGS: Breath sounds clear to auscultation bilaterally and equal. No wheezes rales or rhonchi. HEART: Regular rate and rhythm without murmurs ABDOMEN: Soft, nontender, normoactive bowel sounds. No rebound, guarding, or rigidity. No masses appreciated. EXTREMITIES: Nontender, good range of motion, no pitting or edema. NEUROLOGICAL: No focal neurological deficits. Moves all extremities spontaneously Motor and sensory grossly intact on exam. PSYCH: Normal mood, normal affect. SKIN: Warm, Dry, normal turgor, no rashes or lesions noted on exposed skin - Related Data Allergies/Adverse Reactions: acetaminophen [From Percocet] Allergy (Intermediate, Verified 03/10/19 19:18) Hallucinations adhesive [Adhesive] Allergy (Intermediate, Verified 03/10/19 19:18) rash celecoxib [From Celebrex] Allergy (Intermediate, Verified 03/10/19 19:18) vomiting and hives nitrofurantoin [From Macrobid] Allergy (Intermediate, Verified 03/10/19 19:18) rash nitrofurantoin macrocrystalline [From Macrobid] Allergy (Intermediate, Verified 03/10/19 19:18) Generalized rash buprenorphine Adverse Reaction (Intermediate, Verified 03/10/19 19:18) Anaphylaxis oxycodone HCl [From Percocet] Adverse Reaction (Intermediate, Verified 03/10/19 19:18) hallucinate Past Medical History - Social History Smoking Status: Never Smoker Frequency of alcohol use: None Drug Abuse: None Family History: Reviewed & Not Pertinent Patient has suicidal ideation: No Patient has homicidal ideation: No - Past Medical History Cardiac Medical History: Reports: Hx Hypercholesterolemia Denies: Hx Coronary Artery Disease, Hx Heart Attack, Hx Hypertension Pulmonary Medical History: Denies: Hx Asthma, Hx Bronchitis, Hx COPD, Hx Pneumonia, Hx Tuberculosis Neurological Medical History: Denies: Hx Cerebrovascular Accident, Hx Migraine, Hx Seizures Renal/ Medical History: Denies: Hx Peritoneal Dialysis GI Medical History: Reports: Hx Gastroesophageal Reflux Disease Musculoskeletal Medical History: Reports Hx Arthritis, Reports Hx Fibromyalgia Psychiatric Medical History: Reports: Hx Anxiety, Hx Depression Past Surgical History: Reports: Hx Orthopedic Surgery - neck fusion, right shoulder, L arm. Denies: Hx Hysterectomy - Immunizations Hx Diphtheria, Pertussis, Tetanus Vaccination: No Physical Exam - Vital signs Vitals: Temp Pulse Resp BP Pulse Ox 98.0 F 64 17 144/73 H 99 03/10/19 19:21 03/10/19 19:21 03/10/19 19:21 03/10/19 19:21 03/10/19 19:21 Course - Re-evaluation Re-evalutation: 03/10/19 22:31 Vitals reviewed. Nursing notes reviewed. Patient is well-appearing and nontoxic. She has no focal neurologic deficits. When she goes from lying to sitting she has spinning sensation which resolves after 10 to 15 seconds. When she is holding still she is completely asymptomatic. She does have a long history of sinus and ear issues. Patient's symptoms are most consistent with BPPV. Since they are fatigable after a few seconds and occur with position changes I am not currently suspicious for CVA. Patient will be given meclizine and Valium for symptomatic management. She is complaining of bladder spasms and urinalysis shows urinary tract infection that will be treated with Keflex. 03/10/19 23:24 Patient reevaluated and is asymptomatic. She appears much more comfortable. She is able to stand and ambulate without any gait disturbance or ataxia. Patient has an ear nose and throat physician which she will follow with for her vertigo. She will talk to her primary care doctor about her bladder spasms and urinary tract infection for follow-up. Patient counseled on return precautions. She is stable for discharge. - Vital Signs Vital signs: Temp Pulse Resp BP Pulse Ox 98.0 F 64 17 144/73 H 99 03/10/19 19:21 03/10/19 19:21 03/10/19 19:21 03/10/19 19:21 03/10/19 19:21 - Laboratory Laboratory results interpreted by me: 03/10/19 21:50 Urine Urobilinogen 2.0 H Ur Leukocyte Esterase SMALL H Discharge - Discharge Clinical Impression: Acute UTI BPPV (benign paroxysmal positional vertigo) Qualifiers: Laterality: right Qualified Code(s): H81.11 - Benign paroxysmal vertigo, right ear Condition: Stable Disposition: HOME, SELF-CARE Instructions: Vertigo ([facility]), Urinary Tract Infection ([facility]) Additional Instructions: Please return to the emergency department if you have any worsening, or concern of your symptoms. Please return to the emergency department if you develop chest pain, difficulty breathing, severe abdominal pain, or ongoing vomiting. Please follow-up with your primary care physician in 2-3 days and any other recommended physicians. If prescribed, take all medications as directed. If you have any questions or concerns do not hesitate to return the emergency department for evaluation. Call your ENT doctor for follow-up of your vertigo Prescriptions: Cephalexin Monohydrate [Keflex 500 mg Capsule] 500 mg PO BID 5 Days capsule Cephalexin Monohydrate [Keflex 500 mg Capsule] 500 mg PO BID 5 Days capsule Meclizine HCl [Antivert 25 mg Tablet] 25 mg PO TID PRN #21 tablet PRN Reason: vertigo Referrals: LUISE ANTONIO MD [Primary Care Provider] - Follow up in 3-5 days
[2019-03-11 00:07] VITALS: BP 150/72
== END 2019-03-11 00:05 | disposition home or self-care (01) ==
LOC: ER 19:16
DX: H81.11 Benign paroxysmal vertigo, right ear (principal); N39.0 Urinary tract infection, site not specified; N32.89 Other specified disorders of bladder; W19.XXXA Unspecified fall, initial encounter
CPT/HCPCS: 99284; 81001; A9270 ×3

== ENCOUNTER → 2020-03-30 | Outpatient (CLI) | payer MEDICARE, MEDICAID ==
--- NOTE | 2020-03-30 19:31 | EKG REPORT ---
SEVERITY:- BORDERLINE ECG - SINUS RHYTHM PROBABLE LEFT ATRIAL ABNORMALITY BORDERLINE T ABNORMALITIES, ANT-LAT LEADS : Confirmed by: Asiya Abreu 30-Mar-2020 19:30:18
== END ==
LOC: OD 12:34
PROVIDERS: ATTEND Physician Assistant
DX: Z79.891 Long term (current) use of opiate analgesic (principal)
CPT/HCPCS: 93005; 93010

== ENCOUNTER → 2020-05-13 | Outpatient (CLI) | payer MEDICARE, MEDICAID ==
--- NOTE | 2020-05-13 18:12 | EKG REPORT ---
SEVERITY:- NORMAL ECG - SINUS BRADYCARDIA : Confirmed by: Martin Johnson MD 13-May-2020 18:11:29
== END ==
LOC: OD 13:13
PROVIDERS: ATTEND Nurse Practitioner Family
DX: Z51.81 Encounter for therapeutic drug level monitoring (principal); Z79.899 Other long term (current) drug therapy
CPT/HCPCS: 93005; 93010